=== PATIENT | male | born 1980 | race Caucasian/White ===

== ENCOUNTER 2018-01-16 09:55 | Outpatient (CLI) | payer BC ==
[2018-01-16 11:19] LABS: Hemoglobin 16.1 g/dL (14.0-18.0); Mean Corpuscular HGB CONC 36.1 g/dL (32.0-36.0); Mean Corpuscular Hemoglobin 31.6 pg (27.0-31.0); Mean Corpuscular Volume 87.4 fl (80.0-94.0); Mean Platelet Volume 6.8 fL (7.4-10.4); Platelet Count 212 thou/uL (130-400); Red Blood Cell (RBC) Count 5.09 mill/uL (4.70-6.10); White Blood Cell (WBC) Count 5.5 thou/uL (4.8-10.8)
[2018-01-16 11:38] LABS: Anion Gap 11 mmol/L (10-20); BUN (Urea Nitrogen) 10 mg/dL (8.9-20.6); Calc. Creatinine Clearance 0 mL/min (70-130); Calcium 9.4 mg/dL (7.8-10.44); Carbon Dioxide 27 mmol/L (22-29); Chloride 103 mmol/L (98-107); Estimated GFR-MDRD 84; Glucose 67 mg/dL (70-105); Potassium 4.1 mmol/L (3.5-5.1); Sodium 137 mmol/L (136-145)
--- NOTE | 2018-01-16 19:07 | EKG ---
Test Reason : Blood Pressure : / mmHG Vent. Rate : 078 BPM Atrial Rate : 078 BPM P-R Int : 118 ms QRS Dur : 100 ms QT Int : 360 ms P-R-T Axes : 029 064 000 degrees QTc Int : 410 ms Normal sinus rhythm Nonspecific ST-T changes No previous ECGs available Confirmed by DR. Lopez LANTIGUA ([id number]) on 01/16/2018 7:07:07 PM Referred By: RITO Confirmed By:DR. Lopez LANTIGUA
== END 2018-01-16 09:56 | disposition home or self-care (01) ==
LOC: LABBT 09:55
PROVIDERS: ATTEND Neurological Surgery
DX: Z01.818 Encounter for other preprocedural examination (principal); M54.12 Radiculopathy, cervical region; Z98.1 Arthrodesis status
CPT/HCPCS: 80048; 85027; 93005; 93010

== ENCOUNTER 2018-01-24 06:08 | Day surgery (SDC) | payer BC ==
[2018-01-16 10:31] VITALS: BMI 31.7
[2018-01-24] MEDS ORDERED: CEFAZOLIN/Water 2 GM/20 ML SYRINGE ONE (06:48)
[2018-01-24] MEDS ORDERED: Sodium Chloride 0.9% 10 ML ONE (06:51)
[2018-01-24] MEDS ORDERED: Midazolam HCl 2 mg/2 ml Vial ONE ×2 (07:14→09:46)
[2018-01-24] MEDS ORDERED: Fentanyl 250 MCG/5 ML VIAL ONE ×2 (07:19→09:15)
--- NOTE | 2018-01-24 11:02 | OP ---
DATE OF PROCEDURE: 01/24/2018 SURGEON: Chris Gomez M.D. VALUE STREAM MANAGER: Josué Garcia PA-C PROCEDURES: Anterior cervical discectomy C5-6 and C6-7, interbody arthrodesis, intravertebral biomec hanical device, local morselized autograft, demineralized bone matrix, anterior titanium instrumentat ion C5-6 and C6-7. PROCEDURE IN DETAIL: The patient was brought to the operating room and intubated. He was positioned supine, head in modest extension on a gel-filled donut. Incision was made in the right precervical area and dissecting medial to the sternocleidomastoid muscle, identified the anterior cervical spine and our level was confirmed by x-ray. We debrided anterior osteophytes, placed distraction across th e disc space and using the operating microscope and microdissection techniques, completely decompress ed the intravertebral discs down to the level of the dura both affected levels. The bony endplates w ere then decorticated for the purpose of arthrodesis and appropriately sized intravertebral biomechan ical PEEK device was brought into the field, filled with demineralized bone and local morselized auto graft, and tapped into place securely at C5-6 and C6-7. Next, an anterior plate was brought in the f ield and secured to C5, C6, and C7 using two 14 mm screws at each level. The wound was then extensiv maame irrigated, immaculate hemostasis was secured, and the wound was closed in anatomic layers.
[2018-01-24] MEDS ORDERED: HYDROcodone/Acetaminophen 5/325 mg Tablet ONE (11:31)
[2018-01-24] MEDS ORDERED: Glycopyrrolate 0.2 MG/ML 5 ML SYRINGE ONE (15:25)
[2018-01-24] MEDS ORDERED: PHENYLEPHRINE-NS 100 MCG/ML 10 ML SYRINGE ONE (15:25)
[2018-01-24] MEDS ORDERED: Propofol 200 MG/20 ML VIAL ONE (15:25)
[2018-01-24] MEDS ORDERED: Ketorolac Tromethamine 30 MG/ML VIAL ONE (15:25)
[2018-01-24] MEDS ORDERED: Ondansetron HCl/PF 4 MG/2 ML Vial ONE (15:25)
[2018-01-24] MEDS ORDERED: Lidocaine 1% PF 5 ML VIAL ONE (15:25)
[2018-01-24] MEDS ORDERED: diphenhydrAMINE 50 MG/ML VIAL ONE (15:25)
[2018-01-24] MEDS ORDERED: Dexamethasone 20 MG/5 ML VIAL ONE (15:25)
== END 2018-01-24 11:50 | disposition home or self-care (01) ==
LOC: SDC 06:08
PROVIDERS: ATTEND Neurological Surgery
DX: M50.122 Cervical disc disorder at C5-C6 level with radiculopathy (principal); M47.22 Other spondylosis with radiculopathy, cervical region; Z79.899 Other long term (current) drug therapy
CPT/HCPCS: 76001; 96374; A4216; C1713; C1776; J0131; J1100; J1200; J1885; J2001; J2250; J2405; J2704; J3010; J3490

== ENCOUNTER 2018-02-05 10:00 | Outpatient (CLI) | payer BC ==
--- NOTE | 2018-02-05 11:48 | RAD ---
CERVICAL SPINE FOUR VIEWS: Date: 02-05-18 Comparison: None. History: 37-year-old male status post cervical spine surgery two weeks ago. Pain between shoulder lucy farrukh, left hand numbness. FINDINGS: Anterior discectomy and fusion hardware is present at the C5-6/C6-7 level. There is prevertebral soft tissue swelling anterior to the post-operative hardware measuring 2.9 cm in AP dimension. No evidenc e for hardware failure. Open mouth odontoid view demonstrates a normal appearing dens and C1-2 articu lation. The dens appears normal on the Fuchs view. Vertebral body height and alignment normal on the frontal and lateral examination. IMPRESSION: Post-operative hardware present consistent with C5-6/C6-7 discectomy and fusion. Soft tissue swelling is seen in the prevertebral space anterior to the post-operative hardware for which clinical correla tion is required. POS: LUIS DANIEL
== END 2018-02-05 10:01 | disposition home or self-care (01) ==
LOC: TBSIIMAG 10:00
PROVIDERS: ATTEND Neurological Surgery
DX: M50.30 Other cervical disc degeneration, unspecified cervical region (principal); M79.89 Other specified soft tissue disorders; Z96.7 Presence of other bone and tendon implants
CPT/HCPCS: 72040

== ENCOUNTER 2018-03-28 12:36 | Outpatient (CLI) | payer BC ==
--- NOTE | 2018-03-28 13:02 | RAD ---
CERVICAL SPINE 3 VIEWS: Date: 03/28/18 COMPARISON: 02/05/18. HISTORY: Status post surgery. Follow-up exam. FINDINGS: Stable fusion changes at C5, C6, and C7. No perihardware lucency. Stable prosthesis at C5-C6 and C6-C 7. Straightening of normal cervical lordosis is unchanged. Cervicomedullary junction is unremarkable. Predental space is normal. There is no prevertebral soft tissue swelling. Vertebral body height is m aintained. No fracture. Mild degenerative changes of the facets in the AP projection. IMPRESSION: Stable cervical fusion changes. POS: CATHERINE
== END 2018-03-28 12:37 | disposition home or self-care (01) ==
LOC: TBSIIMAG 12:36
PROVIDERS: ATTEND Neurological Surgery
DX: M50.30 Other cervical disc degeneration, unspecified cervical region (principal); Z98.1 Arthrodesis status
CPT/HCPCS: 72040